=== PATIENT | female | born 1975 | race Caucasian/White ===

== ENCOUNTER 2021-02-18 19:14 | Emergency (ER) | payer OTHER ==
[2021-02-18 19:43] VITALS: BMI 29.9
[2021-02-18] MEDS ORDERED: MECLIZINE HCL 25 MG TABLET (FP) PO ONE (22:06)
[2021-02-18] MEDS ORDERED: MECLIZINE HCL 25 MG TABLET (FP) ONE (22:19)
[2021-02-18 22:28] LABS: BASO % 1.2 % (0-2.0); EOS % 3.3 % (0-4.5); HEMOGLOBIN 14.3 GM/dL (10.7-15.3); LYMPH % 34.8 % (8-40); MCHC 33.4 g/dl (32.0-36.0); MEAN CELL VOLUME 86.9 fl (80-96); MEAN PLT VOLUME 10.2 fl (7.5-11.1); MONO % 6.1 % (3.8-10.2); NEUT % 54.6 % (42.8-82.8); PLATELET COUNT 245 K/MM3 (134-434); RBC 4.94 M/mm3 (3.60-5.2); RDW 13.3 % (11.6-15.6); WHITE BLOOD COUNT 11.1 K/mm3 (4.0-10.0)
[2021-02-18 22:53] LABS: CHLORIDE 108 mmol/L (98-107); POTASSIUM 3.7 mmol/L (3.5-5.1); SODIUM 139 mmol/L (136-145)
[2021-02-18 22:55] LABS: ALBUMIN 4.2 g/dl (3.4-5.0); ANION GAP 8 MMOL/L (8-16); BLOOD UREA NITROGEN 8.4 mg/dL (7-18); CALCIUM 9.6 mg/dL (8.5-10.1); CO2 24 mmol/L (21-32)
[2021-02-18 22:56] LABS: GLUCOSE,RANDOM 101 mg/dL (74-106); MAGNESIUM 2.4 mg/dL (1.8-2.4)
[2021-02-18 22:58] LABS: PHOSPHOROUS 3.3 mg/dL (2.5-4.9); SGOT/AST 23 U/L (15-37); SGPT/ALT 46 U/L (13-61)
[2021-02-18 22:59] LABS: CREATININE 0.7 mg/dL (0.55-1.3)
[2021-02-18 23:00] LABS: BILIRUBIN,TOTAL 0.2 mg/dL (0.2-1); TOT PROT 8.4 g/dl (6.4-8.2)
[2021-02-18 23:01] LABS: ALK PHOS 169 U/L (45-117)
[2021-02-19 03:16] VITALS: BP 124/63; PULSE 58; TEMP 98.6
== END 2021-02-19 04:01 | disposition home or self-care (01) ==
LOC: JER 19:14
DX: R42 Dizziness and giddiness (principal)
CPT/HCPCS: 36415; 70450-TC; 80053; 82550; 82553; 83735; 84100; 84484; 84703; 85025; 93005; 93010; 99285-25